=== PATIENT | female | born 2000 | race Caucasian/White ===

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

== ENCOUNTER 2022-10-27 16:42 | Emergency (ER) | payer OTHER ==
[2022-10-27 16:51] VITALS: BP 136/87; PULSE 85; RESP 18; TEMP 98.2; BMI 31.2
[2022-10-27 18:05] LABS: BASO % 0.6 % (0-2.0); EOS % 1.9 % (0-4.5); HEMATOCRIT 37.2 % (32.4-45.2); HEMOGLOBIN 13.2 GM/dL (10.7-15.3); LYMPH % 37.8 % (8-40); MCH 30.9 pg (25.7-33.7); MCHC 35.4 g/dl (32.0-36.0); MEAN CELL VOLUME 87.1 fl (80-96); MEAN PLT VOLUME 8.8 fl (7.5-11.1); MONO % 4.8 % (3.8-10.2); NEUT % 54.9 % (42.8-82.8); PLATELET COUNT 311 10^3/uL (134-434); RBC 4.27 M/mm3 (3.60-5.2); RDW 13.6 % (11.6-15.6)
[2022-10-27 18:22] LABS: ALBUMIN 4.3 g/dl (3.4-5.0); BLOOD UREA NITROGEN 8.7 mg/dL (7-18); CALCIUM 9.6 mg/dL (8.5-10.1)
[2022-10-27 18:25] LABS: CREATININE 0.6 mg/dL (0.55-1.3)
[2022-10-27 18:27] LABS: BILIRUBIN,TOTAL 0.3 mg/dL (0.2-1); TOT PROT 8.1 g/dl (6.4-8.2)
== END 2022-10-27 19:14 | disposition home or self-care (01) ==
LOC: JER 16:42
DX: N93.9 Abnormal uterine and vaginal bleeding, unspecified (principal); K62.89 Other specified diseases of anus and rectum
CPT/HCPCS: 36415; 80053; 82272; 84703; 85025; 86850; 86900; 86901; 99284-25